=== PATIENT | male | born 1975 | race African-American/Black ===

== ENCOUNTER 2017-04-16 15:05 | Emergency (ER) | payer SELFPAY ==
[2017-04-16 15:07] VITALS: BP 132/70; PULSE 89; RESP 14; TEMP 98.8; O2SAT 98
[2017-04-16] MEDS ORDERED: cefTRIAXone 250 MG VIAL IM ONE (15:45)
[2017-04-16] MEDS ORDERED: LIDOCAINE HCL 1% 50 ML VIAL XX ONE (15:45)
[2017-04-16] MEDS ORDERED: AZITHROMYCIN 250 MG TAB PO ONE (15:45)
--- NOTE | 2017-04-16 15:45 | PD ---
HPI Chief Complaint: Complaint Time Seen by Provider: 15:26 Travel History International Travel<30 days: No Contact w/Intl Traveler<30days: No Traveled to known affect area: No History of Present Illness HPI 41-year-old male presents for evaluation of dysuria. Symptoms started 1 week ago. He reports a burning sensation which is aggravated by urination with no relieving factors. He reports white urethral discharge. He reports that his girlfriend was recently diagnosed with gonorrhea and treated for the same. Denies any abdominal pain, testicular or scrotal pain, fevers or chills. He has no other complaints at this time. [facility] Social History Alcohol Use: Yes Tobacco Use: No Allergies-Medications (Allergen,Severity, Reaction): Coded Allergies: No Known Allergies (Verified Allergy, Unknown, 04/16/17) Reported Meds & Prescriptions Reported Meds & Active Scripts Active No Active Prescriptions or Reported Medications Review of Systems General / Constitutional: No: Fever, Chills Gastrointestinal: No: Nausea, Vomiting, Abdominal Pain Genitourinary: Positive: Dysuria, Other (positive for urethral discharge) Physical Exam Narrative GENERAL: Well-nourished male in no acute distress SKIN: Warm and dry. CARDIOVASCULAR: Regular rate and rhythm. No murmur appreciated. RESPIRATORY: No accessory muscle use. Clear to auscultation. Breath sounds equal bilaterally. GASTROINTESTINAL: Abdomen soft, non-tender, nondistended. Hepatic and splenic margins not palpable. examination reveals white urethral discharge. Circumcised. No scrotal cutaneous lesions. Data Data Last Documented VS Vital Signs Date Time Temp Pulse Resp B/P (MAP) Pulse Ox O2 Delivery O2 Flow Rate FiO2 04/16/17 15:07 98.8 89 14 132/70 (90) 98 Orders Orders Gc And Chlamydia Pcr (04/16/17 15:24) Azithromycin (Zithromax) (04/16/17 15:45) Ceftriaxone Inj (Rocephin Inj) (04/16/17 15:45) Lidocaine 1% Inj (50 Ml) (Xylocaine 1% I (04/16/17 15:45) Ed Discharge Order (04/16/17 15:41) MDM Medical Decision Making Medical Screen Exam Complete: Yes Emergency Medical Condition: Yes Medical Record Reviewed: Yes Differential Diagnosis Urethritis-gonococcal versus nongonococcal versus cystitis Narrative Course History examination are consistent with urethritis. The patient will be treated empirically with Rocephin and azithromycin pending GC PCR results. Diagnosis Primary Impression: Urethritis Referrals: [facility] Dept. Additional Instructions: Follow-up at the health department or with primary care physician for routine STD testing. No sex or contact until 1 week after you and partner have been tested and treated. Return for any emergent medical conditions. Med/Other Pt SpecificInfo: No Change to Meds Scripts No Active Prescriptions or Reported Meds Disposition: 01 DISCHARGE HOME Condition: Stable Jah Francis Apr 16, 2017 15:45
[2017-04-16] MEDS ORDERED: LIDOCAINE HCL 1% PF 30 ML VIAL INFIL ONE (16:00)
== END 2017-04-16 16:33 | disposition home or self-care (01) ==
LOC: NEPK 15:05
DX: N34.2 Other urethritis (principal)
CPT/HCPCS: 87491; 87591; 96372; 99283; J0696